=== PATIENT | female | born 1975 | race Caucasian/White ===

== ENCOUNTER → 2020-02-09 | Outpatient (CLI) | payer OTHER ==
--- NOTE | 2020-02-09 18:50 | RAD ---
Examination: 1. Right digital diagnostic mammogram. 2. Targeted right breast ultrasound. INDICATION: Screening recall for distortion in the lateral right breast. Patient recalls a visit that she has had a 100 pound weight loss in the past year following gastric bypass surgery. COMPARISON: Bilateral mammograms of 01/29/2020 and 01/26/2019. TECHNIQUE: Full field right ML view, right CC rolled medial and right CC rolled lateral view, right CC spot compression view and 3-D right ML view were obtained. Computer-aided detection was utilized. Targeted ultrasound of the upper-outer quadrant right breast was also performed. FINDINGS: Scattered fibroglandular densities. Questioned asymmetry and architectural distortion changed configuration in a pattern suggesting possible overlap of benign fibroglandular tissue. It did not fully resolved on mammography so targeted ultrasound of the upper-outer quadrant right breast was pursued, focusing on the 10:00 position 8 cm from the nipple. Only on the antiradial orientation was vague hypoechoic tissue identified at the periphery of the echogenic fibroglandular tissue at this location but this was not easily reproduced. IMPRESSION: Probably benign island of fibroglandular tissue newly identified following massive interval weight loss. Recommend a short-term follow-up right diagnostic mammogram and targeted breast ultrasound in 3 months. Patient should maintain self breast awareness and promptly report any new or changing symptoms to her referring physician. BI-RADS Category 3 Probably benign findings Recommend 3 month follow-up right diagnostic mammogram and breast ultrasound. Patient entered into a reminder system with targeted due date for next mammogram Electronically signed by: Michelle Peck MD (02/09/2020 6:47 PM) [id number]
== END ==
LOC: MAMMO 13:52
PROVIDERS: ATTEND Nurse Practitioner
DX: R92.2 Inconclusive mammogram (principal)
CPT/HCPCS: 76641; 77065